=== PATIENT | male | born 1990 | race American Indian/Alaskan Native ===

== ENCOUNTER 2017-02-13 17:40 | Emergency (ER) | payer SELFPAY ==
[2017-02-13 18:57] LABS: Bilirubin,Urine NEG (Negative); Blood,Urine NEG (Negative); Ketones,Urine NEG (Negative); Leukocyte Esterase,Urine NEG (Negative); Mucus,Urine FEW /HPF; Nitrite,Urine NEG (Negative); Protein,Urine <15 mg/dL mg/dL (Negative); Urobilinogen,Urine < 2.0 mg/dL (<2.0)
--- NOTE | 2017-02-13 20:02 | Emergency Department Report ---
ED Male HPI - General Chief complaint: Urogenital-Male Stated complaint: BLADDER PAIN Time Seen by Provider: 02/13/17 19:57 Source: patient Mode of arrival: Ambulatory Limitations: No Limitations - History of Present Illness Initial comments: 26-year-old male past medical history none presents with complaint of increased urinary frequency. Denies fevers chills nausea vomiting abdominal pain. States he has had a sensation of bladder fullness. Denies any rectal pain. Denies any penile discharge. Patient is awake alert and oriented 3 nontoxic appearing. States this has been ongoing for approximately 1-2 weeks. States he is urinating approximately 20 times a day and he normally urinates about 5 times a day. States he has a somewhat burning sensation with urination. Denies any genitourinary rash. Denies any testicular swelling or pain. MD Complaint: dysuria Onset/Timin -: week(s) Quality: burning Consistency: intermittent Worsens with: urination new medication denies other symptoms - Related Data Previous Rx's Medication Instructions Recorded Last Taken Type Ciprofloxacin HCl [Cipro] 500 mg PO BID #14 tablet 02/13/17 Unknown Rx Allergies Allergy/AdvReac Type Severity Reaction Status Date / Time No Known Allergies Allergy Verified 02/13/17 18:12 ED Review of Systems ROS: Stated complaint: BLADDER PAIN Other details as noted in HPI ED Past Medical Hx - Past Medical History Previous Medical History?: No - Surgical History Past Surgical History?: No - Social History Smoking Status: Current Every Day Smoker Substance Use Type: None - Medications Home Medications: Home Medications Medication Instructions Recorded Confirmed Last Taken Type Ciprofloxacin HCl [Cipro] 500 mg PO BID #14 tablet 02/13/17 Unknown Rx ED Physical Exam - General Limitations: No Limitations General appearance: alert, in no apparent distress - Head Head exam: Present: atraumatic, normocephalic - Eye Eye exam: Present: normal appearance, PERRL, EOMI - ENT ENT exam: Present: mucous membranes moist - Neck Neck exam: Present: normal inspection - Respiratory Respiratory exam: Present: normal lung sounds bilaterally. Absent: respiratory distress - Cardiovascular Cardiovascular Exam: Present: regular rate, normal rhythm. Absent: systolic murmur, diastolic murmur, rubs, gallop - GI/Abdominal GI/Abdominal exam: Present: soft, normal bowel sounds - Rectal Rectal exam: Present: deferred - Extremities Exam Extremities exam: Present: normal inspection - Back Exam Back exam: Present: normal inspection - Neurological Exam Neurological exam: Present: alert, oriented X3, CN II-XII intact, normal gait - Psychiatric Psychiatric exam: Present: normal affect, normal mood - Skin Skin exam: Present: warm, dry, intact, normal color. Absent: rash ED Course Vital Signs 02/13/17 02/13/17 18:07 19:41 Temperature 98.7 F Pulse Rate 130 H 120 H Respiratory 16 Rate Blood Pressure 167/97 170/95 O2 Sat by Pulse 99 97 Oximetry ED Medical Decision Making - Lab Data Result diagrams: 02/13/17 20:31 02/13/17 20:31 - Medical Decision Making A/P: Dysuria, mild dehydration 1-CK 800, patient given 1 L of IV fluid and is tolerating by mouth fluids without difficulty 2-will treat patient empirically for symptom of dysuria we'll cover for chlamydia and gonorrhea and give patient course of Cipro 3-follow-up with urology and primary care, GC cultures sent, urine culture sent 4- renal function WNL on BMP. I advised pt to drink plenty of fluids at least 3- 4 L per day. pt agreed to do so Critical care attestation.: If time is entered above; I have spent that time in minutes in the direct care of this critically ill patient, excluding procedure time. ED Disposition Clinical Impression: Dysuria Disposition: DC-01 TO HOME OR SELFCARE Is pt being admited?: No Does the pt Need Aspirin: No Condition: Stable Instructions: Urinary Tract Infection in Men (ED) Prescriptions: Ciprofloxacin HCl [Cipro] 500 mg PO BID #14 tablet Referrals: [facility] [Outside] - 3-5 Days [facility] [Outside] - 3-5 Days [facility] [Provider Group] - 3-5 Days Forms: Accompanied Note, Work/School Release Form(ED) Time of Disposition: 23:22
[2017-02-13 20:45] LABS: Basophils % (Auto) 0.4 % (0.0-1.8); Eosinophils % (Auto) 0.2 % (0.0-4.3); Hematocrit 44.8 % (35.5-45.6); Hemoglobin 15.3 gm/dl (11.8-15.2); Mean Corpuscular HGB Conc 34 % (32-34); Mean Corpuscular Hemoglobin 30 pg (28-32); Mean Corpuscular Volume 89 fl (84-94); Platelet Count 322 K/mm3 (140-440); Red Blood Count 5.04 M/mm3 (3.65-5.03); Red Cell Distribution Width 13.1 % (13.2-15.2); White Blood Count 9.7 K/mm3 (4.5-11.0)
[2017-02-13 21:06] LABS: Anion Gap 22 mmol/L; BUN/Creatinine Ratio 9; Blood Urea Nitrogen 8 mg/dL (9-20); Calcium 9.6 mg/dL (8.4-10.2); Carbon Dioxide 25 mmol/L (22-30); Chloride 96.8 mmol/L (98-107); Creatine Kinase 811 units/L (55-170); Glucose 110 mg/dL (75-100); Potassium 4.3 mmol/L (3.6-5.0); Sodium 139 mmol/L (137-145)
[2017-02-13] MEDS ORDERED: NACL 0.9% 1000 ML 1,000 ML IV ONE (21:20)
--- NOTE | 2017-02-13 22:56 | Cat Scan Report ---
FINAL REPORT PROCEDURE: CT ABDOMEN PELVIS WO CON TECHNIQUE: Computerized axial tomography of the abdomen and pelvis was performed without intravenous contrast. This study is performed without intravascular contrast material and its sensitivity for abdominal and pelvic pathology, including neoplasms, inflammation, abscess, free fluid, thrombosis, arterial dissection and infarction, is reduced compared with a contrast enhanced study. HISTORY: dysruia, suprapubic pain ? stone COMPARISON: No prior studies are available for comparison. FINDINGS: Visualized lower thorax: No significant abnormality. Liver: Normal size and attenuation. Spleen: Normal size and attenuation. Gallbladder and biliary system: Normal. Pancreas: Normal. Adrenals: Normal. Kidneys: There are no kidney stones or ureteral stones. There is no hydronephrosis.. GI tract: There is no bowel obstruction, colitis or enteritis. The appendix is normal.. Lymph nodes and mesentery: Normal. Vasculature: Normal. Bladder: Normal. Reproductive organs: Normal. Peritoneum: There is no ascites or free air, abscess or adenopathy.. Musculoskeletal structures: No significant abnormality. Other: None. IMPRESSION: Normal examination of the abdomen and pelvis.
[2017-02-13] MEDS ORDERED: XYLOCAINE 1% MPF 5 mL INFILTRATI ONE (23:20)
[2017-02-13] MEDS ORDERED: ZITHROMAX PO ONE (23:20)
[2017-02-13] MEDS ORDERED: ROCEPHIN IM ONE (23:20)
[2017-02-14 00:04] VITALS: BP 151/102
== END 2017-02-14 00:04 | disposition home or self-care (01) ==
LOC: ED 17:40
DX: R30.0 Dysuria (principal); F17.200 Nicotine dependence, unspecified, uncomplicated; E86.0 Dehydration; N32.89 Other specified disorders of bladder
CPT/HCPCS: 36415; 74176; 80048; 81001; 82550; 82962; 85025; 87086; 96360; 96361; 96372; 99284; J0696; J7030

== ENCOUNTER 2018-09-27 03:35 | Emergency (ER) | payer OTHER ==
[2018-09-27] MEDS ORDERED: XANAX ONE (04:48)
[2018-09-27] MEDS ORDERED: XANAX PO ONE (04:50)
--- NOTE | 2018-09-27 04:52 | Emergency Department Report ---
ED General Adult HPI - General Chief complaint: High BP Stated complaint: HIGH BP Time Seen by Provider: 09/27/18 04:50 Source: patient, RN notes reviewed, old records reviewed Mode of arrival: Ambulatory Limitations: No Limitations - History of Present Illness Initial comments: This is a pleasant yet anxious 28-year-old gentleman, who is not known to this provider previously. The patient is visiting from [place]. On 09/24/2018, the patient was seen at [facility] in [facility]. He was evaluated for elevated blood pressure and presumed hyperglycemia. He had screening laboratory studies sent, including a comprehensive metabolic panel and CBC, which were essentially unremarkable, with the exception of hyperglycemia of 434, without significant anion gap. He was presumptively diagnosed with type 2 diabetes, and started on metformin. Patient presents to the ER today with a complaint of anxiety. He reports that he was feeling very anxious and about his new diagnosis, and checked his blood pressure, and it was found to be high. He is not having physical pain at this time. He contacted a relative, who advised that he take aspirin. Patient was given Xanax in the emergency room, and he felt much improved. The patient denies all physical complaints at this time, with the exception of some anxiety. -: Sudden Improves with: medication - Related Data Previous Rx's Medication Instructions Recorded Last Taken Type Ciprofloxacin HCl [Cipro] 500 mg PO BID #14 tablet 02/13/17 Unknown Rx Allergies Allergy/AdvReac Type Severity Reaction Status Date / Time No Known Allergies Allergy Verified 02/13/17 18:12 ED Review of Systems ROS: Stated complaint: HIGH BP Other details as noted in HPI Constitutional: denies: fever Eyes: denies: eye discharge ENT: denies: epistaxis Respiratory: denies: cough Cardiovascular: denies: chest pain Gastrointestinal: denies: abdominal pain, nausea, vomiting Genitourinary: denies: dysuria Musculoskeletal: denies: back pain Skin: denies: lesions Psychiatric: anxiety ED Past Medical Hx - Past Medical History Previous Medical History?: Yes Hx Diabetes: Yes - Surgical History Past Surgical History?: No - Social History Smoking Status: Former Smoker Substance Use Type: None - Medications Home Medications: Home Medications Medication Instructions Recorded Confirmed Last Taken Type Ciprofloxacin HCl [Cipro] 500 mg PO BID #14 tablet 02/13/17 Unknown Rx ED Physical Exam - General Limitations: No Limitations General appearance: alert, anxious, obese - Head Head exam: Present: atraumatic, normocephalic - Eye Eye exam: Present: normal appearance, EOMI. Absent: nystagmus - ENT ENT exam: Present: normal exam, normal orophraynx, mucous membranes moist, normal external ear exam - Neck Neck exam: Present: normal inspection, full ROM. Absent: tenderness, meningismus - Respiratory Respiratory exam: Present: normal lung sounds bilaterally. Absent: respiratory distress - Cardiovascular Cardiovascular Exam: Present: normal rhythm, tachycardia, normal heart sounds. Absent: bradycardia, irregular rhythm, systolic murmur, diastolic murmur, rubs, gallop - GI/Abdominal GI/Abdominal exam: Present: soft. Absent: distended, tenderness, guarding, rebound, rigid, pulsatile mass - Rectal Rectal exam: Present: deferred - Extremities Exam Extremities exam: Present: normal inspection, full ROM, other (2+ pulses noted in the bilateral upper, lower extremities. Compartments soft. No long bony tenderness. The pelvis is stable.). Absent: pedal edema, joint swelling, calf tenderness - Back Exam Back exam: Present: normal inspection, full ROM. Absent: tenderness, CVA tenderness (R), CVA tenderness (L), paraspinal tenderness, vertebral tenderness - Neurological Exam Neurological exam: Present: alert, oriented X3, normal gait, other (Extraocular movements intact. Tongue midline. No facial droop. Facial sensation intact to light touch in the V1, V2, V3 distribution bilaterally. 5 and 5 strength in 4 extremities.. Sensation is intact to light touch in 4 extremities.). Absent: motor sensory deficit - Psychiatric Psychiatric exam: Present: anxious - Skin Skin exam: Present: warm, dry, intact, normal color. Absent: rash ED Course Vital Signs 09/27/18 09/27/18 03:40 05:17 Temperature 98.2 F 98.5 F Pulse Rate 101 H 94 H Respiratory 18 18 Rate Blood Pressure 183/95 Blood Pressure 157/105 [Left] O2 Sat by Pulse 98 100 Oximetry ED Medical Decision Making - Lab Data Vital Signs 09/27/18 09/27/18 03:40 05:17 Temperature 98.2 F 98.5 F Pulse Rate 101 H 94 H Respiratory 18 18 Rate Blood Pressure 183/95 Blood Pressure 157/105 [Left] O2 Sat by Pulse 98 100 Oximetry Lab Results 09/27/18 Range/Units 05:22 POC Glucose 199 H (70-105) - EKG Data -: EKG Interpreted by Me EKG shows normal: sinus rhythm Rate: normal - EKG Data When compared to previous EKG there are: previous EKG unavailable 09/27/18 05:24 This is a normal sinus rhythm, 89 beats per minute, QTC within normal limits, borderline high left ventricular voltage, there is a borderline left axis deviation, this EKG is abnormal, the patient is not having chest pain, this EKG is not consistent with ST elevation myocardial infarction. - Medical Decision Making Differential diagnosis, including but not limited to: Anxiety, panic attack, hyperglycemia, elevated blood pressure Assessment and plan: 28-year-old gentleman who is feeling very anxious about a presumed diagnosis of type 2 diabetes. His blood pressure is now improved. His tachycardia is resolved. His physical examination is unremarkable, and he currently does not endorse any medical complaints, and endorses that his anxiety is improving. He had comprehensive laboratory studies performed 3 days ago, and I have reviewed them, and there do not appear to be any emergent findings and his outpatient laboratory studies. I see no reason to repeat his laboratory studies at this point in time. The patient and I had an extensive discussion about diet and lifestyle modifications, weight loss, and physical activity/exercise. Patient is counseled that he does not necessarily need to start metformin medication, and that he may participate in weight loss, exercise, and diet modifications for the next 3 months, and then recheck his laboratory studies. He is verbalized understanding, and he is amenable to this plan of care. Critical care attestation.: If time is entered above; I have spent that time in minutes in the direct care of this critically ill patient, excluding procedure time. ED Disposition Clinical Impression: History of hyperglycemia, History of elevated blood pressure while in hospital Disposition: DC-01 TO HOME OR SELFCARE Is pt being admited?: No Does the pt Need Aspirin: No Condition: Stable Additional Instructions: Please follow up with the primary care doctor within the next 3-4 weeks. Patient most likely has undiagnosed or recently diagnosed type 2 diabetes, which is likely related to diet and lifestyle. We recommend that the patient lose weight, avoid consumption of sugary drinks, and sodas, and simple carbohydrates, he should participate in physical activities as tolerated Patient may follow [place] [employer] website recommendations for diabetic appropriate diet. Patient may follow up for repeat evaluation for high blood sugar and elevated blood pressure within the next 3-4 weeks. Return to the emergency room right away with new, worsening or different symptoms not present on the initial emergency room evaluation. Referrals: [facility] [Provider Group] - 3-5 Days [facility] [Provider Group] - 3-5 Days
[2018-09-27 05:18] VITALS: BP 157/105
== END 2018-09-27 06:04 | disposition home or self-care (01) ==
LOC: ED 03:35
DX: E11.65 Type 2 diabetes mellitus with hyperglycemia (principal); R03.0 Elevated blood-pressure reading, without diagnosis of hypertension; Z87.891 Personal history of nicotine dependence
CPT/HCPCS: 82962; 93005; 93010